=== PATIENT | female | born 1955 | race Caucasian/White ===

== ENCOUNTER 2018-08-16 07:25 | Outpatient (CLI) | payer BC ==
--- NOTE | 2018-08-16 07:58 | ULT ---
Exam: Right upper quadrant ultrasound: HISTORY: Elevated AST levels. COMPARISON: None FINDINGS: Liver:Unremarkable. Gallbladder:No evidence of gallbladder calculi, wall thickening, or pericholecystic fluid. Common bile duct: The common duct measures0.5 cm which is within normal limits. Pancreas: Limited visualized portions of the pancreas demonstrate a normal sonographic appearance. Right kidney: Normal sonographic appearance and measures9.5 cm in length. IVC: The visualized IVC demonstrates a normal sonographic appearance. IMPRESSION: Right upper quadrant ultrasound is within normal limits; no gallbladder calculi are seen.
== END 2018-08-16 07:26 | disposition home or self-care (01) ==
LOC: BICULT 07:25
PROVIDERS: ATTEND Internal Medicine
DX: R74.0 Nonspecific elevation of levels of transaminase and lactic acid dehydrogenase [LDH] (principal)
CPT/HCPCS: 76705

== ENCOUNTER 2018-10-26 09:50 | Outpatient (CLI) | payer BC ==
--- NOTE | 2018-10-26 10:49 | RAD ---
RIGHT KNEE 2 VIEWS: HISTORY: Knee pain. Osteoarthritis. FINDINGS: Joint spaces are maintained. Minimal degenerative spurring. No joint effusion. No acute osseous le jacqui. IMPRESSION: No significant osteoarthrosis identified. No acute abnormality. POS: OFF
--- NOTE | 2018-10-26 14:17 | BD ---
Exam: DEXA Bone Density 10/26/18 HISTORY: Age-related osteoporosis. COMPARISON: None. FINDINGS: Lumbar Spine: BMD (g/cm2) T-SCORE Z-SCORE L1 0.784 -1.9 -0.5 L2 0.800 -2.1 -0.6 L3 0.867 -2.0 -0.4 L4 0.937 -1.1 0.5 L1-L4 0.851 -1.8 -0.3 WHO classification: Osteopenia. Right Femoral Neck: 0.718 -1.2 0.2 Total Femur: 0.824 -1.0 0.1 WHO classification: Osteopenia. Ten year fracture risk: Major osteoporotic fracture: 6.8%. Hip fracture: 0.5%. Impression: Osteopenia with elevated fracture risk. POS: MAYANK
== END 2018-10-26 09:51 | disposition home or self-care (01) ==
LOC: BICMAMMO 09:50
PROVIDERS: ATTEND Internal Medicine Rheumatology
DX: M81.0 Age-related osteoporosis without current pathological fracture (principal); M17.11 Unilateral primary osteoarthritis, right knee; M85.89 Other specified disorders of bone density and structure, multiple sites
CPT/HCPCS: 77080

== ENCOUNTER 2021-01-01 14:18 | Outpatient (CLI) | payer OTHER | END 2021-01-01 14:19 | disposition home or self-care (01) | LOC: BICMAMMO 14:18 | PROVIDERS: ATTEND Internal Medicine Rheumatology | DX: M81.0 Age-related osteoporosis without current pathological fracture (principal) | CPT/HCPCS: 77080 ==

== ENCOUNTER 2021-02-18 14:02 | Outpatient (CLI) | payer OTHER | END 2021-02-18 14:03 | disposition home or self-care (01) | LOC: BICMAMMO 14:02 | PROVIDERS: ATTEND Internal Medicine Rheumatology | DX: M81.8 Other osteoporosis without current pathological fracture (principal); M85.851 Other specified disorders of bone density and structure, right thigh; M85.852 Other specified disorders of bone density and structure, left thigh | CPT/HCPCS: 77080 ==